=== PATIENT | female | born 1985 | race Caucasian/White ===

== ENCOUNTER 2019-02-06 16:09 | Emergency (ER) | payer SELFPAY ==
[~2019-02-06] VITALS: Ht 167.6 cm; Wt 95.0 kg
[2019-02-06 16:30] VITALS: BP 107/61
[2019-02-06] MEDS ORDERED: FAMOTIDINE 20MG/2ML VIAL IV STA (17:30)
[2019-02-06] MEDS ORDERED: MAGNESIUM/ALUMINUM HYDROXIDE/SIMETHICONE 30ML UDC PO STA (17:30)
[2019-02-06] MEDS ORDERED: VISCOUS LIDOCAINE 2% 15 ML UDC PO STA (17:30)
[2019-02-06 19:11] LABS: BASOPHILS % 0.8 % (0.0-2.0); EOSINOPHILS % 0.8 % (0.0-5.0); HEMATOCRIT. 39.5 % (36.0-48.0); HEMOGLOBIN. 13.6 g/dL (12.0-16.0); LYMPHOCYTES % 25.5 % (20.0-50.0); MEAN CORPUSCULAR HEMOGLOBIN 29.6 pg (28.0-32.0); MEAN CORPUSCULAR VOLUME 86.2 fL (81.0-99.0); MEAN PLATELET VOLUME 9.2 fl (7.4-10.4); MONOCYTES % 8.6 % (2.0-8.0); NEUTROPHILS % 64.3 % (40.0-76.0); PLATELET 238 x1000/uL (130-400); RED BLOOD CELL COUNT 4.58 mill/uL (4.2-5.4)
[2019-02-06 19:12] LABS: CHLORIDE 107 mEq/L (98-107)
[2019-02-06 19:40] LABS: CLARITY URINE CLEAR (CLEAR); COLOR URINE DARK YELLOW (YELLOW); KETONES URINE NEGATIVE (NEGATIVE); LEUKOCYTE ESTERASE URINE NEGATIVE (NEGATIVE); NITRITE URINE NEGATIVE (NEGATIVE); OCCULT BLOOD URINE NEGATIVE (NEGATIVE); PROTEIN URINE TRACE (NEGATIVE); SPECIFIC GRAVITY URINE 1.037 (1.005-1.030)
== END 2019-02-06 17:55 | disposition left against medical advice (07) ==
LOC: ER 16:28
DX: R10.9 Unspecified abdominal pain (principal); G51.0 Bell's palsy; Z88.0 Allergy status to penicillin; Z86.19 Personal history of other infectious and parasitic diseases
CPT/HCPCS: 36415; 80053; 81003; 81025; 83690; 84484; 85025; 99284; Z7610

== ENCOUNTER 2019-02-10 01:01 | Emergency (ER) | payer SELFPAY ==
[~2019-02-10] VITALS: Ht 170.2 cm; Wt 87.0 kg
[2019-02-10] MEDS ORDERED: SODIUM CHLORIDE 0.9% 1,000 ML IV ONE ×2 (05:39→06:27)
[2019-02-10 06:08] LABS: CHLORIDE 108 mEq/L (98-107)
[2019-02-10 06:11] LABS: BASOPHILS % 0.7 % (0.0-2.0); EOSINOPHILS % 2.4 % (0.0-5.0); HEMATOCRIT. 39.3 % (36.0-48.0); HEMOGLOBIN. 13.5 g/dL (12.0-16.0); LYMPHOCYTES % 35.5 % (20.0-50.0); MEAN CORPUSCULAR HEMOGLOBIN 29.6 pg (28.0-32.0); MONOCYTES % 12.7 % (2.0-8.0); NEUTROPHILS % 48.7 % (40.0-76.0); PLATELET 216 x1000/uL (130-400); RED BLOOD CELL COUNT 4.57 mill/uL (4.2-5.4); RED CELL DISTRIBUTION WIDTH 13.4 % (11.6-14.6)
[2019-02-10 06:15] LABS: CLARITY URINE CLEAR (CLEAR); COLOR URINE YELLOW (YELLOW); KETONES URINE TRACE (NEGATIVE); LEUKOCYTE ESTERASE URINE NEGATIVE (NEGATIVE); NITRITE URINE NEGATIVE (NEGATIVE); OCCULT BLOOD URINE NEGATIVE (NEGATIVE); PH URINE 6.5 (4.5-8.0); PROTEIN URINE NEGATIVE (NEGATIVE); SPECIFIC GRAVITY URINE 1.034 (1.005-1.030)
[2019-02-10] MEDS ORDERED: FAMOTIDINE 20MG/2ML VIAL IV STA (06:27)
[2019-02-10] MEDS ORDERED: ONDANSETRON HCL 4MG/2ML INJ IV STA (06:27)
[2019-02-10] MEDS ORDERED: MORPHINE SULFATE 2 MG/ML CPJ (NOT FOR IM USE) IV ONE (06:30)
[2019-02-10] MEDS ORDERED: VISCOUS LIDOCAINE 2% 15 ML UDC PO STA (07:33)
[2019-02-10] MEDS ORDERED: MAGNESIUM/ALUMINUM HYDROXIDE/SIMETHICONE 30ML UDC PO STA (07:33)
[2019-02-10 08:15] VITALS: BP 118/53
== END 2019-02-10 08:17 | disposition home or self-care (01) ==
LOC: ER 01:01
DX: R10.9 Unspecified abdominal pain (principal); E86.0 Dehydration; K29.00 Acute gastritis without bleeding; Z88.0 Allergy status to penicillin; Z86.19 Personal history of other infectious and parasitic diseases
CPT/HCPCS: 36415; 76705; 80053; 81003; 81025; 83690; 85025; 93005; 96361; 96374; 96375; 99284; J2270; J2405; J3490; J7030; Z7610